=== PATIENT | male | born 2000 | race Caucasian/White ===

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

== ENCOUNTER → 2021-11-27 | Outpatient (CLI) | payer MEDICARE, OTHER ==
--- NOTE | 2021-11-27 10:52 | XR ---
EXAMINATION TYPE: XR ankle limited RT DATE OF EXAM: 11/27/2021 COMPARISON: NONE HISTORY: 21-year-old male M25.5771, right ankle pain. TECHNIQUE: Only 2 views are provided FINDINGS: On the lateral view, there is a slight cortical step-off along the posterior margin either of the dis amanda fibular shaft or distal tibial metadiaphysis. There is mild soft tissue swelling. There is impact ed articular surface of the mid and medial talar dome. Subtalar joint align. IMPRESSION: 1. Only 2 views are provided. There is impacted articular surface of the mid and medial talar dome padilla ggesting old impaction fracture or a significant chronic osteochondral injury. 2. Cortical step off posteriorly on the lateral view could represent sequela of healed fracture eithe r from the distal tibia (posterior malleolus) or fibula.
== END | disposition home or self-care (01) ==
LOC: RADXRMAIN 08:53
PROVIDERS: ATTEND Internal Medicine
DX: M25.571 Pain in right ankle and joints of right foot (principal)

== ENCOUNTER 2021-12-28 10:53 | Emergency (ER) | payer MEDICARE, OTHER ==
[2021-12-28 10:58] VITALS: BP 130/84; PULSE 114; RESP 18; TEMP 97.9
[2021-12-28] MEDS ORDERED: KETOROLAC 15 MG/ML 1 ML VIAL IM STA (11:18)
--- NOTE | 2021-12-28 11:23 | ED ---
General Adult HPI - General Chief complaint: Extremity Injury, Upper Stated complaint: Rt Arm Pain Time Seen by Provider: 12/28/21 11:00 Source: patient Mode of arrival: ambulatory Limitations: no limitations - History of Present Illness Initial comments: This 21-year-old male with past medical history spina bifida presents emergency Department with right elbow and forearm pain. Patient states when he woke up this morning he was experiencing severe elbow pain that has since started to slowly get better. Patient denies sleeping on it, trauma, falling and hitting his right arm. Patient describes the pain as an aching pain. Patient states when he woke up this morning was much worse than it is now, however he still is noticing some pain now. Patient denies taking any medication for this pain. Patient denies any loss of sensation, tingling, neck pain, fever. Patient denies any chest pain, shortness of breath, abdominal pain, nausea, vomiting, change in vision, headache, loss of range of motion of right arm, back pain, change in bowel or bladder. - Related Data Home Medications Medication Instructions Recorded Confirmed Oxybutynin Chloride [Ditropan Oral 5 mg PO TID 12/28/21 12/28/21 Soln] Allergies Allergy/AdvReac Type Severity Reaction Status Date / Time amoxicillin trihydrate Allergy Unknown Verified 12/28/21 11:14 [From Augmentin] latex Allergy Unknown Verified 12/28/21 11:14 morphine Allergy Rash/Hives Verified 12/28/21 11:14 potassium clavulanate Allergy Unknown Verified 12/28/21 11:14 [From Augmentin] Review of Systems ROS Statement: Those systems with pertinent positive or pertinent negative responses have been documented in the HPI. ROS Other: All systems not noted in ROS Statement are negative. Past Medical History Additional Past Medical History / Comment(s): spina bifida, vp & general counsel shunt with revisions x3. no feeling from kness down on both legs. History of Any Multi-Drug Resistant Organisms: None Reported Past Surgical History: Adenoidectomy, Orthopedic Surgery, Tonsillectomy Additional Past Surgical History / Comment(s): back correction for spina bifida, vp & general counsel shunt with 3 revisions, tension release at ankles Past Psychological History: No Psychological Hx Reported Smoking Status: Never smoker Past Alcohol Use History: None Reported Past Drug Use History: None Reported General Exam Limitations: no limitations General appearance: alert, in no apparent distress Head exam: Present: atraumatic, normocephalic Eye exam: Present: normal appearance, PERRL, EOMI Pupils: Present: normal accommodation ENT exam: Present: mucous membranes moist Neck exam: Present: normal inspection, full ROM. Absent: tenderness, meningismus, lymphadenopathy Respiratory exam: Present: normal lung sounds bilaterally. Absent: respiratory distress, wheezes, rales, rhonchi, stridor Cardiovascular Exam: Present: regular rate, normal rhythm, normal heart sounds. Absent: systolic murmur, diastolic murmur, rubs, gallop, clicks GI/Abdominal exam: Present: soft, normal bowel sounds. Absent: distended, tenderness, guarding, rebound, rigid Extremities exam: Present: normal inspection, full ROM, tenderness (Right elbow and dorsal side of forearm painful to palpation. Radial and ulnar pulses intact, full sensation in all digits. Full range of motion. Sensation equal in right and left arms. No swelling, warmth, erythema to right arm), normal capillary refill. Absent: pedal edema, joint swelling, calf tenderness Back exam: Absent: tenderness, CVA tenderness (R), CVA tenderness (L), paraspinal tenderness, vertebral tenderness Neurological exam: Present: alert, oriented X3, CN II-XII intact Psychiatric exam: Present: normal affect, normal mood Skin exam: Present: warm, dry, intact, normal color. Absent: rash Course Vital Signs 12/28/21 10:54 Temperature 97.9 F Pulse Rate 114 H Respiratory 18 Rate Blood Pressure 130/84 O2 Sat by Pulse 98 Oximetry Medical Decision Making - Medical Decision Making This 21-year-old male presents emergency Department with right elbow and dorsal forearm pain that began this morning. Patient states his pain has significantly decreased from this morning. Toradol given. Right arm elbow x-ray impression: Radius aligns normally with the humerus. Anterior fat pad is normal. No elevation of posterior fat pads is evident. No acute osseous abnormality is evident. After Toradol was given, patient states he does have significant decrease of pain of his right elbow and forearm and his pain is 0/10. Patient given option for right upper extremity ultrasound to assess for blood clot, low clinical suspicion for this due to having no swelling, erythema, warmth and currently no pain of right upper extremity at this time. Patient states he'll return if his pain comes back or worsens or he experiences any blood clot signs or symptoms. Patient sent home to follow-up with his primary care provider next 24-48 hours. Strict return precautions were discussed. Patient verbally agreed to plan. Patient sent home in stable condition. Discussed with my attending, Dr. Adams Disposition Clinical Impression: Right elbow pain Disposition: HOME SELF-CARE Condition: Stable Instructions (If sedation given, give patient instructions): Elbow Sprain (ED) Additional Instructions: Follow-up with primary care provider next 24-48 hours. Return to the emergency department with any new, concerning, or worsening symptoms. Is patient prescribed a controlled substance at d/c from ED?: No Referrals: Rubén Otoole DO [Primary Care Provider] - 1-2 days Decision Time: 12:06
--- NOTE | 2021-12-28 11:44 | XR ---
EXAMINATION TYPE: XR elbow complete RT DATE OF EXAM: 12/28/2021 COMPARISON: None HISTORY: Pain TECHNIQUE: Three-view right elbow FINDINGS: Radius aligns normally with the humerus. Anterior fat pad is normal. No elevation of food safety coordinator ior fat pad is evident. No acute osseous abnormality is evident. Follow-up can be performed as clinically indicated. IMPRESSION: 1. No acute osseous abnormality right elbow.
== END 2021-12-28 12:40 | disposition home or self-care (01) ==
LOC: EC 10:53
DX: M25.521 Pain in right elbow (principal); Z88.0 Allergy status to penicillin; Z91.040 Latex allergy status; Z88.6 Allergy status to analgesic agent
CPT/HCPCS: 73080; 96372; 99283; J1885

== ENCOUNTER → 2022-01-26 | Outpatient (CLI) | payer MEDICARE, OTHER ==
--- NOTE | 2022-01-26 10:19 | US ---
EXAMINATION TYPE: US kidneys/renal and bladder DATE OF EXAM: 01/26/2022 COMPARISON: US CLINICAL HISTORY: N31.9 Neurogenic bladder. Neurogenic bladder due to spina bifida, pt self caths EXAM MEASUREMENTS: Right Kidney: 12.2 x 6.2 x 6.5 cm Left Kidney: 11.7 x 5.3 x 4.9 cm Right Kidney: Moderate hydro Left Kidney: Mildly dilated renal pelvis= 2.1 cm Bladder: Irregular bladder wall, possible air within anterior bladder wall, bladder wall thickness= 0 .8 cm Bilateral Jets seen: No No nephrolithiasis is seen. No masses are identified. The urinary bladder is anechoic. Bilateral u reteral jets are seen. IMPRESSION: Right greater than left hydronephrosis. Irregular bladder wall thickening.
== END | disposition home or self-care (01) ==
LOC: RADUSWWP 09:36
PROVIDERS: ATTEND Urology
DX: N31.9 Neuromuscular dysfunction of bladder, unspecified (principal); N13.30 Unspecified hydronephrosis
CPT/HCPCS: 76770

== ENCOUNTER → 2022-02-12 | Outpatient (CLI) | payer MEDICARE, OTHER ==
--- NOTE | 2022-02-12 09:39 | CT ---
EXAMINATION TYPE: CT abdomen pelvis wo con DATE OF EXAM: 02/12/2022 COMPARISON: Ultrasound dated 01/26/2022 HISTORY: Right sided flank pain CT DLP: 552.7 mGycm Automated exposure control for dose reduction was used. TECHNIQUE: Helical acquisition of images was performed from the lung bases through the pelvis. FINDINGS: LUNG BASES: No significant abnormality is appreciated. LIVER/GB: No significant abnormality is appreciated. PANCREAS: No significant abnormality is seen. SPLEEN: No significant abnormality is seen. ADRENALS: No significant abnormality is seen. KIDNEYS: Dilated right renal collecting system as well as the right ureter with mild right perinephri c and right periureteric fat stranding. The dilatation is seen down to the right ureterovesicular harrison ction. No definite radiodense calculus is seen at that location. Irregular outline of the urinary isabella dder with thickened wall, trabeculation and tiny calcification at an anterior wall small diverticulum . No other radiodense urinary bladder calculi. No left-sided hydroureter or hydronephrosis. No defini te renal lesion by this nonenhanced CT scan. FREE AIR: No free air is visualized RETROPERITONEAL ADENOPATHY: None visualized REPRODUCTIVE ORGANS: Apparently small elongated prostate. Unremarkable seminal vesicles. PELVIC ADENOPATHY: 12 mm left external iliac lymph node with prominent subcentimeter bilateral ingui nal and bilateral external iliac lymph nodes, nonspecific. OSSEOUS STRUCTURES: Slight deformity of the sacrum and hip joints bilaterally with degenerative carr ges and possible disuse atrophy. Spina bifida of the sacrum. BOWEL: Unremarkable stomach, duodenum and small bowel. Significant fecal loading of the rectum with large fecaloma within, with milder yet still significant fecal loading of the remainder of the colon suggestive of constipation. The patient may benefit from laxatives or an enema. Normal appendix. OTHER: No sizable ascites. 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 Small fat-containing umbilical herni a. Complete atrophy and fatty infiltration of the gluteal muscles and to a lesser extent some pelvic muscles. IMPRESSION: IRREGULAR OUTLINE OF THE URINARY BLADDER WITH THICKENED WALL, TRABECULATION AND QUESTIONABLE TINY FREIDA CIFICATION/CALCULUS AT THE ANTERIOR ASPECT DESCRIBED ABOVE, UNDERLYING CHRONIC CYSTITIS CAN'T BE E XCLUDED. RECOMMEND CORRELATION WITH URINALYSIS RESULTS AND CYTOLOGY. FURTHER CYSTOSCOPY CAN BE CONSID ERED IF CLINICALLY REQUIRED. MODERATE RIGHT-SIDED HYDROURETER AND HYDRONEPHROSIS DOWN TO THE URETEROVESICULAR JUNCTION WITHOUT DEF INITE RADIODENSE OBSTRUCTING STONE. THIS COULD BE DUE TO THE DESCRIBED URINARY BLADDER CHANGES HOWEVE R RIGHT URETEROVESICAL JUNCTION STRICTURE OR RADIOLUCENT STONE CANNOT BE EXCLUDED. FURTHER RENAL SCIN TIGRAPHY CAN BE CONSIDERED. OTHER FINDINGS DESCRIBED ABOVE.
== END | disposition home or self-care (01) ==
LOC: RADCTMAIN 08:52
PROVIDERS: ATTEND Urology
DX: N13.30 Unspecified hydronephrosis (principal)
CPT/HCPCS: 74176

== ENCOUNTER → 2023-02-25 | Outpatient (CLI) | payer MEDICARE, OTHER ==
--- NOTE | 2023-02-25 14:23 | US ---
EXAMINATION TYPE: US kidneys/renal and bladder DATE OF EXAM: 02/25/2023 COMPARISON: CT, US 2021 CLINICAL HISTORY: N13.30. Hydronephrosis. Pt has spina bifida. EXAM MEASUREMENTS: Right Kidney: 12.0 x 6.8 x 7.7 cm Left Kidney: 11.2 x 5.2 x 5.8 cm Right Kidney: Moderate to large Hydronephrosis seen Left Kidney: Appearance of probable prominent column of Chuy. Bladder: Bladder wall appears thickened: 0.5 cm. Wall also appears irregular/jagged. Bilateral Jets seen: No Urinary bladder wall appears thickened. IMPRESSION: 1. Moderate to large right hydronephrosis. 2. Thickened urinary bladder wall.
== END | disposition home or self-care (01) ==
LOC: RADUSWWP 12:59
PROVIDERS: ATTEND Urology
DX: N13.30 Unspecified hydronephrosis (principal); N32.89 Other specified disorders of bladder
CPT/HCPCS: 76770

== ENCOUNTER → 2023-03-24 | Outpatient (CLI) | payer OTHER, MEDICARE ==
[~2023-03-24] MED LIST: FUROSEMIDE 10 MG/ML 2 ML VIAL IV ONE
--- NOTE | 2023-03-24 15:28 | NM ---
INDICATION: Patient age:Male; 22 years old; Reason for study: N13.30 UNSPECIFIED HYDRONEPHROSIS; PHH. COMPARISON: Ultrasound 02/25/2023, 01/26/2022, CT abdomen and pelvis 02/12/2022. TECHNIQUE: 8.7 mCi of technetium 99m labeled MAG3 was administered intravenously. Dynamic posterior perfusion images over the abdomen were obtained. This was followed by posterior functional images ob tained at 2min/frame for 21 frames. 10 mg of intravenous Lasix was administered 10 minutes following radiotracer injection. Quantitative analysis was performed. FINDINGS: Dynamic perfusion images demonstrate prompt accumulation of radiotracer within the left kidney with m inimal delay on the right. Moderate left hydronephrosis associated. The left kidney demonstrates normal washout with appropriate excretion curve. The right kidney demons trates obstructive excretion curve. Split renal function for the kidneys (uptake %): 36.8 right and 63.2 left which is within normal limits. (Normal is within 10% of each other) Renal retention: 0.619 on the left which is abnormal Time of one half Lasix: 25.9 minutes on the left which is abnormal. IMPRESSION: 1. Moderate left hydronephrosis with findings most consistent with an obstruction. Right kidney demon strates normal findings. 2. Quantitative analysis as above.
== END | disposition home or self-care (01) ==
LOC: RADNMMAIN 12:45
PROVIDERS: ATTEND Urology
DX: N13.30 Unspecified hydronephrosis (principal)
CPT/HCPCS: 78708; A9562; 11042

== ENCOUNTER → 2023-06-02 | Outpatient (CLI) | payer OTHER, MEDICARE ==
--- NOTE | 2023-06-02 22:48 | US ---
EXAMINATION TYPE: US kidneys/renal and bladder DATE OF EXAM: 06/02/2023 COMPARISON: NONE CLINICAL INDICATION: Male, 23 years old with history of N13.30; Hydronephrosis EXAM MEASUREMENTS: Right Kidney: 9.7 x 6.2 x 5.8 cm Left Kidney: 11.0 x 4.6 x 4.0 cm Right Kidney: Severe hydronephrosis Left Kidney: No hydronephrosis or masses seen Bladder: Thickened wall. Bilateral Jets seen: no, left only. IMPRESSION: 1. Severe right hydronephrosis. 2. Urinary bladder wall thickening. Additional workup is recommended
== END | disposition home or self-care (01) ==
LOC: RADUSWWP 14:53 → EEVIPCON 15:00
PROVIDERS: ATTEND Urology
DX: N13.30 Unspecified hydronephrosis (principal); N32.89 Other specified disorders of bladder
CPT/HCPCS: 76770

== ENCOUNTER → 2023-06-28 | Outpatient (CLI) | payer OTHER, MEDICARE ==
[~2023-06-28] MED LIST changes: -FUROSEMIDE 10 MG/ML 2 ML VIAL IV ONE; +FUROSEMIDE 10 MG/ML 2 ML VIAL IV STA
--- NOTE | 2023-06-28 16:44 | NM ---
EXAMINATION TYPE: NM lasix renogram DATE OF EXAM: 06/28/2023 COMPARISON: 03/24/2023, ultrasound 06/02/2023 CLINICAL INDICATION: Male, 23 years old with history of N13.30 UNSPECIFIED HYDRONEPHROSIS; Following administration of 10.18 mCi Tc 99m MAG3 with 20mg Lasix. Immediate images post injection FINDINGS: Left: 63.9 %. Right: 36.1 %. Max renal flow left: 11.52 minutes. Max renal flow right: 29.5 minutes. Satisfactory accumulation of radiotracer within both renal collecting systems. After the administrati on of Lasix, there is prompt excretion from both collecting systems. T 1/2 left: 20 minutes. T 1/2 right: NA minutes. IMPRESSION: No significant change from prior on 03/24/2023 with evidence of right kidney obstruction. Left renal c ollecting system is within normal limits.
== END | disposition home or self-care (01) ==
LOC: RADNMMAIN 13:02
PROVIDERS: ATTEND Urology
DX: N13.30 Unspecified hydronephrosis (principal)
CPT/HCPCS: 78708; A9562

== ENCOUNTER 2024-04-05 02:51 | Emergency (ER) | payer MEDICARE, OTHER ==
--- NOTE | 2024-04-05 03:39 | ED ---
General Adult HPI - General Source: patient, family Mode of arrival: wheelchair Limitations: physical limitation <Johnathan Patel - Last Filed: 04/05/24 04:16> <Mayito Geronimo - Last Filed: 04/05/24 06:38> - General Chief complaint: Urogenital Stated complaint: Right Side Pain Time Seen by Provider: 04/05/24 03:06 - History of Present Illness Initial comments: 23-year-old male with a past medical history significant for spina bifida with known "swelling of the right kidney" as described by the patient's mother follows with nephrology at [facility] and had a suprapubic catheter placed a few days ago and also notes a Bateman catheter in place which is currently capped due to a reported injury to the urethra that they are living he will prior to use of this Bateman catheter presenting to the ED with onset of right flank pain today with decreased urination. No fever or chills. Does note minimal blood in the urine. No other complaints at this time. (Johnathan Patel) - Related Data Home Medications Medication Instructions Recorded Confirmed Oxybutynin Chloride [Ditropan Oral 5 mg PO TID 12/28/21 12/28/21 Soln] Previous Rx's Medication Instructions Recorded Ciprofloxacin HCl [Cipro] 500 mg PO Q12HR 7 Days #14 tab 04/05/24 Allergies Allergy/AdvReac Type Severity Reaction Status Date / Time amoxicillin trihydrate Allergy Unknown Verified 04/05/24 02:57 [From Augmentin] latex Allergy Unknown Verified 04/05/24 02:57 morphine Allergy Rash/Hives Verified 04/05/24 02:57 potassium clavulanate Allergy Unknown Verified 04/05/24 02:57 [From Augmentin] Review of Systems ROS Other: All systems not noted in ROS Statement are negative. <Johnathan Patel - Last Filed: 04/05/24 04:16> ROS Other: All systems not noted in ROS Statement are negative. <Mayito Geronimo - Last Filed: 04/05/24 06:38> ROS Statement: Those systems with pertinent positive or pertinent negative responses have been documented in the HPI. Past Medical History Additional Past Medical History / Comment(s): spina bifida, [employer] shunt with revisions x3. no feeling from kness down on both legs. wheelchair bound History of Any Multi-Drug Resistant Organisms: None Reported Past Surgical History: Adenoidectomy, Orthopedic Surgery, Tonsillectomy Additional Past Surgical History / Comment(s): back correction for spina bifida, [employer] shunt with 3 revisions, tension release at ankles, suprapublic catheter, bilateral eyes Past Psychological History: No Psychological Hx Reported Smoking Status: Never smoker Past Alcohol Use History: None Reported Past Drug Use History: None Reported <Johnahtan Patel - Last Filed: 04/05/24 04:16> General Exam Limitations: physical limitation General appearance: alert, in no apparent distress Eye exam: Present: normal appearance Neck exam: Present: normal inspection Respiratory exam: Present: normal lung sounds bilaterally Cardiovascular Exam: Present: regular rate GI/Abdominal exam: Present: soft, other. Absent: distended, tenderness, guarding, rebound, rigid <Johnathan Patel - Last Filed: 04/05/24 04:16> Course Vital Signs 04/05/24 04/05/24 02:58 06:02 Temperature 98.7 F Pulse Rate 107 H 89 Respiratory 18 18 Rate Blood Pressure 145/94 130/88 O2 Sat by Pulse 96 98 Oximetry Medical Decision Making - Lab Data Result diagrams: 04/05/24 03:36 <Johnathan Patel - Last Filed: 04/05/24 04:16> - Lab Data Result diagrams: 04/05/24 03:36 04/05/24 03:36 <Mayito Geronimo - Last Filed: 04/05/24 06:38> - Medical Decision Making Was pt. sent in by a medical professional or institution (Dr. PA, CASTING ROOM OPERATOR, urgent care, hospital, or longterm...) When possible be specific @ -No Did you speak to anyone other than the patient for history (EMS, parent, family, police, friend...)? What history was obtained from this source @ -Parts of history obtained by both the patient and his mother. For further details procedure. Did you review nursing and triage notes (agree or disagree)? Why? @ -I reviewed and agree with nursing and triage notes Were old charts reviewed (outside hosp., previous admission, EMS record, old EKG, old radiological studies, urgent care reports/EKG's, longterm records)? Report findings @ -No old charts were reviewed Differential Diagnosis (chest pain, altered mental status, abdominal pain women, abdominal pain men, vaginal bleeding, weakness, fever, dyspnea, syncope, headache, dizziness, GI bleed, back pain, seizure, CVA, palpatations, mental health, musculoskeletal)? @ -Differential Abdominal Pain Men: Appendicitis, cholecystitis, diverticulosis, ischemic bowel, pancreatitis, hepatitis, UTI, gastroenteritis, AAA, incarcerated hernia, bowel obstruction, constipation, inflammatory bowel, hepatitis, peptic ulcer disease, splenic in farction, perforated viscus, testicular torsion, this is not meant to be an all- inclusive list EKG interpreted by me (3pts min.). @ -None X-rays interpreted by me (1pt min.). @ -None done CT interpreted by me (1pt min.). @ -Pending U/S interpreted by me (1pt. min.). @ -None done What testing was considered but not performed or refused? (CT, X-rays, U/S, labs)? Why? @ -None What meds were considered but not given or refused? Why? @ -None Did you discuss the management of the patient with other professionals (professionals i.e. , PA, CASTING ROOM OPERATOR, lab, RT, psych nurse, social media analyst, centrifugal casting machine tender, teacher, postal sorting officer, case folder)? Give summary @ -No Was smoking cessation discussed for >3mins.? @ -No Was critical care preformed (if so, how long)? @ -No Were there social determinants of health that impacted care today? How? (Homelessness, low income, unemployed, alcoholism, drug addiction, transportation, low edu. Level, literacy, decrease access to med. care, fci, rehab)? @ -No Was there de-escalation of care discussed even if they declined (Discuss DNR or withdrawal of care, Hospice)? DNR status @ -No What co-morbidities impacted this encounter? (DM, HTN, Smoking, COPD, CAD, Cancer, CVA, ARF, Chemo, Hep., AIDS, mental health diagnosis, sleep apnea, morbid obesity)? @ -None Was patient admitted / discharged? Hospital course, mention meds given and route, prescriptions, significant lab abnormalities, going to OR and other pertinent info. @ -Pending 23-year-old male with a past medical history significant for spina bifida and recent suprapubic catheter placed by [facility] a few days ago presented to the ED with acute onset of right flank pain tonight. At this time laboratory and imaging studies are pending and case signed out to my attending physician, Dr. Geronimo, for further disposition. (Johnathan Patel) Signed out to me pending results of CT imaging and labs. Briefly, patient has a history of spina bifida with a shunt. Had a chronic Bateman but now has a suprapubic catheter. Has a history of recurrent UTIs. Just had suprapubic catheter placed 4 days ago. Presents with suprapubic and right-sided abdominal pain which is typical when he has UTI. Has chronic hydroureter on the right. Family presents for further evaluation. Is due to see his urologist next week. Not currently on any antibiotics. CT imaging as interpreted by myself reveals chronic right hydroureter and hydronephrosis which is unchanged from prior CTs. Patient has inflammation of the bladder as well as the proximal right ureter suggestive of infection. Could be inflammatory related secondary to recent suprapubic catheter placement as well. Patient's labs are remarkable for slight leukocytosis of 11.8. Normal kidney function. Urinalysis shows large leukocyte esterase, RBCs, WBCs. Uric acid within normal limits. I updated the patient as well as family. Patient is well-appearing at this time. We will initiate antibiotic therapy on the patient. I did discuss removal of his catheters however patient still has a plugged fairly secondary to a possible hole in his urethra as well as a recently placed suprapubic catheter. Due to these 2 issues, I did offer to remove them but recommended close follow- up with his urologist for guidance regarding this. They were in agreement this plan will call upon leaving the emergency department today. Patient is well- appearing otherwise at this time. They can continue use of Tylenol at home for analgesia and patient will be given a dose of IV Rocephin as well as started on ciprofloxacin for UTI. They were in agreement this plan. Patient be discharged home at this time. Strict return precautions discussed. I will provide the patient with a prescription for ciprofloxacin. I instructed the patient to follow up with their PCP in the next 1-3 days.. I explained that the patient should return to the emergency department if they experience any worsening symptoms. Strict return precautions were discussed with the patient. The patient expressed understanding of these instructions. I answered all questions that the patient had. The patient was discharged home in fair condition with their prescriptions and follow up information. Diagnosis/symptom? @ -UTI Acute, or Chronic, or Acute on Chronic? @ -Acute Uncomplicated (without systemic symptoms) or Complicated (systemic symptoms)? @ -Complicated Side effects of treatment? @ -None Exacerbation, Progression, or Severe Exacerbation] @ -No Poses a threat to life or bodily function? @ -Possibly, yes (Mayito Geronimo) - Lab Data Lab Results 04/05/24 04/05/24 04/05/24 Range/Units 03:36 03:36 03:36 WBC 11.8 H (3.8-10.6) k/uL RBC 5.72 (4.30-5.90) m/uL Hgb 16.1 (13.0-17.5) gm/dL Hct 50.4 (39.0-53.0) % MCV 88.1 (80.0-100.0) fL MCH 28.1 (25.0-35.0) pg MCHC 31.9 (31.0-37.0) g/dL RDW 13.5 (11.5-15.5) % Plt Count 211 (150-450) k/uL MPV 9.0 Neutrophils % 77 % Lymphocytes % 16 % Monocytes % 4 % Eosinophils % 2 % Basophils % 0 % Neutrophils # 9.2 H (1.3-7.7) k/uL Lymphocytes # 1.9 (1.0-4.8) k/uL Monocytes # 0.4 (0-1.0) k/uL Eosinophils # 0.2 (0-0.7) k/uL Basophils # 0.1 (0-0.2) k/uL Sodium 143 (137-145) mmol/L Potassium 4.3 (3.5-5.1) mmol/L Chloride 111 H (98-107) mmol/L Carbon Dioxide 20 L (22-30) mmol/L Anion Gap 12 mmol/L BUN 18 (9-20) mg/dL Creatinine 0.84 (0.66-1.25) mg/dL Est GFR (CKD-EPI)AfAm >90 (>60 ml/min/1.73 sqM) Est GFR (CKD-EPI)NonAf >90 (>60 ml/min/1.73 sqM) Glucose 148 H (74-99) mg/dL Plasma Lactic Acid Jaya (0.7-2.0) mmol/L Calcium 9.5 (8.4-10.2) mg/dL Total Bilirubin 0.6 (0.2-1.3) mg/dL AST 28 (17-59) U/L ALT 47 (4-49) U/L Alkaline Phosphatase 107 (38-126) U/L Total Protein 7.3 (6.3-8.2) g/dL Albumin 4.3 (3.5-5.0) g/dL Urine Color Yellow Urine Appearance Cloudy (Clear) Urine pH 6.5 (5.0-8.0) Ur Specific [place] 1.028 (1.001-1.035) Urine Protein 3+ H (Negative) Urine Glucose (UA) Negative (Negative) Urine Ketones Negative (Negative) Urine Blood Moderate H (Negative) Urine Nitrite Negative (Negative) Urine Bilirubin Negative (Negative) Urine Urobilinogen <2.0 (<2.0) mg/dL Ur Leukocyte Esterase Large H (Negative) Urine RBC >182 H (0-5) /hpf Urine WBC >182 H (0-5) /hpf Urine Mucus Many H (None) /hpf 04/05/24 Range/Units 03:36 WBC (3.8-10.6) k/uL RBC (4.30-5.90) m/uL Hgb (13.0-17.5) gm/dL Hct (39.0-53.0) % MCV (80.0-100.0) fL MCH (25.0-35.0) pg MCHC (31.0-37.0) g/dL RDW (11.5-15.5) % Plt Count (150-450) k/uL MPV Neutrophils % % Lymphocytes % % Monocytes % % Eosinophils % % Basophils % % Neutrophils # (1.3-7.7) k/uL Lymphocytes # (1.0-4.8) k/uL Monocytes # (0-1.0) k/uL Eosinophils # (0-0.7) k/uL Basophils # (0-0.2) k/uL Sodium (137-145) mmol/L Potassium (3.5-5.1) mmol/L Chloride (98-107) mmol/L Carbon Dioxide (22-30) mmol/L Anion Gap mmol/L BUN (9-20) mg/dL Creatinine (0.66-1.25) mg/dL Est GFR (CKD-EPI)AfAm (>60 ml/min/1.73 sqM) Est GFR (CKD-EPI)NonAf (>60 ml/min/1.73 sqM) Glucose (74-99) mg/dL Plasma Lactic Acid Jaya 1.6 (0.7-2.0) mmol/L Calcium (8.4-10.2) mg/dL Total Bilirubin (0.2-1.3) mg/dL AST (17-59) U/L ALT (4-49) U/L Alkaline Phosphatase (38-126) U/L Total Protein (6.3-8.2) g/dL Albumin (3.5-5.0) g/dL Urine Color Urine Appearance (Clear) Urine pH (5.0-8.0) Ur Specific [place] (1.001-1.035) Urine Protein (Negative) Urine Glucose (UA) (Negative) Urine Ketones (Negative) Urine Blood (Negative) Urine Nitrite (Negative) Urine Bilirubin (Negative) Urine Urobilinogen (<2.0) mg/dL Ur Leukocyte Esterase (Negative) Urine RBC (0-5) /hpf Urine WBC (0-5) /hpf Urine Mucus (None) /hpf Disposition <Johnathan Patel - Last Filed: 04/05/24 04:16> Is patient prescribed a controlled substance at d/c from ED?: No Time of Disposition: 05:49 <Mayito Geronimo - Last Filed: 04/05/24 06:38> Clinical Impression: UTI (urinary tract infection) Disposition: HOME SELF-CARE Condition: Fair Instructions (If sedation given, give patient instructions): Urinary Tract Infection in Men (ED) Additional Instructions: contact specialist later today at for followup. Prescriptions: Ciprofloxacin HCl [Cipro] 500 mg PO Q12HR 7 Days #14 tab Referrals: Rubén Otoole DO [Primary Care Provider] - 1-2 days
[2024-04-05 03:44] VITALS: RESP 18; TEMP 98.7
[2024-04-05 03:45] LABS: Basophils # (A) 0.1 k/uL (0-0.2); Basophils % (A) 0 %; Eosinophils # (A) 0.2 k/uL (0-0.7); Eosinophils % (A) 2 %; HCT 50.4 % (39.0-53.0); HGB 16.1 gm/dL (13.0-17.5); Lymphocytes # (A) 1.9 k/uL (1.0-4.8); Lymphocytes % (A) 16 %; MCH 28.1 pg (25.0-35.0); MCHC 31.9 g/dL (31.0-37.0); MCV 88.1 fL (80.0-100.0); Monocytes # (A) 0.4 k/uL (0-1.0); Monocytes % (A) 4 %; Neutrophils # (A) 9.2 k/uL (1.3-7.7); Neutrophils % (A) 77 %; Platelet Count 211 k/uL (150-450); RBC 5.72 m/uL (4.30-5.90); RDW 13.5 % (11.5-15.5); WBC 11.8 k/uL (3.8-10.6)
[2024-04-05 03:49] LABS: Appearance,Urine Cloudy (Clear); Bilirubin,Urine Negative (Negative); Blood,Urine Moderate (Negative); Color,Urine Yellow; Glucose,Urine (UA) Negative (Negative); Ketones,Urine Negative (Negative); Leukocyte Esterase,Urine Large (Negative); Mucus,Urine Many /hpf; Nitrite,Urine Negative (Negative); PH, Urine 6.5 (5.0-8.0); Protein,Urine 3+ (Negative); RBC,Urine >182 /hpf (0-5); Specific Gravity,Urine 1.028 (1.001-1.035); Urobilinogen,Urine <2.0 mg/dL (<2.0); WBC,Urine >182 /hpf (0-5)
[2024-04-05] MEDS: KETOROLAC 15 MG/ML 1 ML VIAL IVP STA (04:02)
[2024-04-05] MEDS: HYDROmorphone 0.5 MG/0.5 ML SYRINGE IVP STA (04:03)
[2024-04-05] MEDS: SODIUM CHLORIDE 0.9% 1,000 ML IV STA (04:04)
--- NOTE | 2024-04-05 04:58 | CT ---
EXAM: CT Abdomen and Pelvis Without Intravenous Contrast CLINICAL HISTORY: R flank pain TECHNIQUE: Axial computed tomography images of the abdomen and pelvis without intravenous contrast. CTDI is 15.6 mGy and DLP is 971.1 mGy-cm. This CT exam was performed using one or more of the following dose reduction techniques: automated exposure control, adjustment of the mA and/or kV according to patient size, and/or use of iterative reconstruction technique. COMPARISON: 02/12/2022. FINDINGS: Lung bases: Unremarkable. No mass. No consolidation. ABDOMEN: Liver: Unremarkable. Gallbladder and bile ducts: Unremarkable. No calcified stones. No ductal dilation. Pancreas: Unremarkable. No ductal dilation. Spleen: Top normal sized 13.2 cm length. Adrenals: Unremarkable. No mass. Kidneys and ureters: Unchanged moderately severe right hydronephrosis and diffuse hydroureter to the level of the urinary bladder. Mild infiltration surrounding the right ureter. No obstructing calculus. Left kidney is unremarkable. Stomach and bowel: Small fat-containing periumbilical hernia. No obstruction or ileus. Abundant stool throughout the colon. No evidence for diverticulitis. PELVIS: Appendix: No findings to suggest acute appendicitis. Bladder: Collapsed urinary bladder with diffuse ill-defined wall thickening in the presence of a Bateman catheter as well as a suprapubic urinary catheter. No stones. Reproductive: Unremarkable as visualized. ABDOMEN and PELVIS: Intraperitoneal space: Right-sided [employer] shunt catheter with the distal tip coiled in the lower left abdomen. No associated fluid collection. No free air. No free fluid. Bones/joints: No acute fracture. Unchanged probable lower lumbar spina bifida defect with chronic deformity of the bilateral hips. Soft tissues: Unremarkable. Vasculature: Unremarkable. No abdominal aortic aneurysm. Lymph nodes: Unremarkable. No enlarged lymph nodes. IMPRESSION: Unchanged severe right hydronephrosis and diffuse hydroureter to the level of the urinary bladder without an obstructing calculus. Collapsed urinary bladder the presence of a Bateman catheter and suprapubic catheter. Mild infiltration surrounding the right ureter and thickened ill-defined jeff the urinary bladder, suspicious for a urinary tract infection of the right ureter and urinary bladder. Otherwise no significant change from 02/12/2022.
[2024-04-05 05:12] LABS: ALT 47 U/L (4-49); AST 28 U/L (17-59); African American GFR (CKD) >90 (>60 ml/min/1.73 sqM); Albumin 4.3 g/dL (3.5-5.0); Alkaline Phosphatase 107 U/L (38-126); Anion Gap 12 mmol/L; Blood Urea Nitrogen 18 mg/dL (9-20); Calcium 9.5 mg/dL (8.4-10.2); Carbon Dioxide 20 mmol/L (22-30); Chloride 111 mmol/L (98-107); Glucose 148 mg/dL (74-99); Non-African American GFR(CKD) >90 (>60 ml/min/1.73 sqM); Potassium 4.3 mmol/L (3.5-5.1); Sodium 143 mmol/L (137-145); Total Bilirubin 0.6 mg/dL (0.2-1.3); Total Protein 7.3 g/dL (6.3-8.2)
[2024-04-05] MEDS: CIPROFLOXACIN HCL 500 MG TAB PO STA (05:53)
[2024-04-05] MEDS: cefTRIAXone IN SWFI 1,000 MG/10 ML SYRINGE IVP STA (05:53)
[2024-04-05 07:00] VITALS: BP 130/88; PULSE 89
== END 2024-04-05 06:12 | disposition home or self-care (01) ==
LOC: EEVIPCON 02:51 → EC 02:51
DX: N39.0 Urinary tract infection, site not specified (principal); Z88.0 Allergy status to penicillin; Z88.1 Allergy status to other antibiotic agents; Z91.040 Latex allergy status; Z88.8 Allergy status to other drugs, medicaments and biological substances
CPT/HCPCS: 36415; 80053; 83605; 85025; 81001; 74176; 99284; 96374; 96375 ×2; 96361; J0696; J1885; J1170

== ENCOUNTER 2024-05-25 16:41 | Emergency (ER) | payer OTHER, MEDICARE ==
--- NOTE | 2024-05-25 17:53 | ED ---
General Adult HPI - General Chief complaint: Recheck/Abnormal Lab/Rx Stated complaint: cath flush Time Seen by Provider: 05/25/24 16:58 Source: patient, RN notes reviewed Mode of arrival: wheelchair Limitations: no limitations - History of Present Illness Initial comments: This is a 24-year-old male who presents emergency department accompanied by his mother with chief complaint of suprapubic catheter malfunction. Patient states that yesterday his suprapubic catheter was draining appropriately. Mother states that she attempted to remove some of the debris's from the catheter. She states that the catheter has been draining better today however feels like the output is not as much as it normally is. Had a suprapubic catheter placed in March and follows with urogyn for this. Patient denies fevers, chills, nausea, vomiting, lower back or flank pain. Denies discoloration to urine or history of nephrolithiasis. No other acute complaints at this time. - Related Data Home Medications Medication Instructions Recorded Confirmed Oxybutynin Chloride [Ditropan Oral 5 mg PO TID 12/28/21 12/28/21 Soln] Previous Rx's Medication Instructions Recorded Ciprofloxacin HCl [Cipro] 500 mg PO Q12HR 7 Days #14 tab 04/05/24 Cephalexin [Keflex] 500 mg PO Q6HR #40 cap 05/25/24 Allergies Allergy/AdvReac Type Severity Reaction Status Date / Time amoxicillin trihydrate Allergy Unknown Verified 05/25/24 16:57 [From Augmentin] latex Allergy Unknown Verified 05/25/24 16:57 morphine Allergy Rash/Hives Verified 05/25/24 16:57 potassium clavulanate Allergy Unknown Verified 05/25/24 16:57 [From Augmentin] Review of Systems ROS Statement: Those systems with pertinent positive or pertinent negative responses have been documented in the HPI. ROS Other: All systems not noted in ROS Statement are negative. Past Medical History Additional Past Medical History / Comment(s): spina bifida, evp [place] shunt with revisions x3. no feeling from kness down on both legs. wheelchair bound History of Any Multi-Drug Resistant Organisms: None Reported Past Surgical History: Adenoidectomy, Orthopedic Surgery, Tonsillectomy Additional Past Surgical History / Comment(s): back correction for spina bifida, evp [place] shunt with 3 revisions, tension release at ankles, suprapublic catheter, bilateral eyes Past Psychological History: No Psychological Hx Reported Smoking Status: Never smoker Past Alcohol Use History: None Reported Past Drug Use History: None Reported General Exam Limitations: no limitations, physical limitation General appearance: alert, in no apparent distress Head exam: Present: atraumatic, normocephalic, normal inspection ENT exam: Present: normal exam, mucous membranes moist Neck exam: Present: normal inspection. Absent: tenderness, meningismus, lymphadenopathy Respiratory exam: Present: normal lung sounds bilaterally. Absent: respiratory distress, wheezes, rales, rhonchi, stridor Cardiovascular Exam: Present: regular rate, normal rhythm, normal heart sounds. Absent: systolic murmur, diastolic murmur, rubs, gallop, clicks GI/Abdominal exam: Present: soft, tenderness (suprapubic), normal bowel sounds. Absent: distended, guarding, rebound, rigid Psychiatric exam: Present: normal affect, normal mood Skin exam: Present: warm, dry, intact, normal color. Absent: rash Course Vital Signs 05/25/24 05/25/24 16:57 21:21 Temperature 97.6 F 97.9 F Pulse Rate 94 91 Respiratory 16 18 Rate Blood Pressure 149/94 138/84 O2 Sat by Pulse 97 98 Oximetry Medical Decision Making - Medical Decision Making Was pt. sent in by a medical professional or institution (VIKTORIA Chao, SUMMER LAW CLERK, urgent care, hospital, or care home...) When possible be specific @ -No Did you speak to anyone other than the patient for history (EMS, parent, family, police, friend...)? What history was obtained from this source @ -spoke to the patient's mom at bedside states that the patient had a suprapubic catheter placed in March and follows with [facility] for follow-up. Did you review nursing and triage notes (agree or disagree)? Why? @ -I reviewed and agree with nursing and triage notes Were old charts reviewed (outside hosp., previous admission, EMS record, old EKG, old radiological studies, urgent care reports/EKG's, care home records)? Report findings @ -No old charts were reviewed Differential Diagnosis (chest pain, altered mental status, abdominal pain women, abdominal pain men, vaginal bleeding, weakness, fever, dyspnea, syncope, headache, dizziness, GI bleed, back pain, seizure, CVA, palpatations, mental health, musculoskeletal)? @ -Urinary tract infection, suprapubic catheter malfunction, this list is not all inclusive EKG interpreted by me (3pts min.). @ -none X-rays interpreted by me (1pt min.). @ -None done CT interpreted by me (1pt min.). @ -None done U/S interpreted by me (1pt. min.). @ -None done What testing was considered but not performed or refused? (CT, X-rays, U/S, labs)? Why? @ -None What meds were considered but not given or refused? Why? @ -None Did you discuss the management of the patient with other professionals (professionals i.e. , PA, SUMMER LAW CLERK, lab, RT, psych nurse, socially responsible investment adviser, roving weight gauger, teacher, staff air defense officer, case briefer)? Give summary @ -No Was smoking cessation discussed for >3mins.? @ -No Was critical care preformed (if so, how long)? @ -No Were there social determinants of health that impacted care today? How? (Homelessness, low income, unemployed, alcoholism, drug addiction, transportation, low edu. Level, literacy, decrease access to med. care, assisted, rehab)? @ -No Was there de-escalation of care discussed even if they declined (Discuss DNR or withdrawal of care, Hospice)? DNR status @ -No What co-morbidities impacted this encounter? (DM, HTN, Smoking, COPD, CAD, Cancer, CVA, ARF, Chemo, Hep., AIDS, mental health diagnosis, sleep apnea, morbid obesity)? @ -None Was patient admitted / discharged? Hospital course, mention meds given and route, prescriptions, significant lab abnormalities, going to OR and other pertinent info. @ -Discharged. 24-year-old male with suprapubic catheter malfunction. Patient's examination benign aside from mild suprapubic tenderness to palpation. Vitals are stable upon arrival. Catheter was appropriately flushed and there is good output. Patient;s urinalysis consistent with infections including nitrites, WBCs and WBC clumps. Will be sent prescription for Keflex instructed to complete full course of antibiotics. All questions answered at bedside and strict return parameters discussed with patient has verbalized understanding. Case discussed with Dr. Helmreich. Undiagnosed new problem with uncertain prognosis? @ -No Drug Therapy requiring intensive monitoring for toxicity (Heparin, Nitro, Insulin, Cardizem)? @ -No Were any procedures done? @ -No Diagnosis/symptom? @ -urinary Tract infection, suprapubic catheter malfunction Acute, or Chronic, or Acute on Chronic? @ -Acute Uncomplicated (without systemic symptoms) or Complicated (systemic symptoms)? @ -uncomplicated Side effects of treatment? @ -No Exacerbation, Progression, or Severe Exacerbation? @ -No Poses a threat to life or bodily function? How? (Chest pain, [place], [place], pneumonia, PE, COPD, DKA, ARF, appy, cholecystitis, CVA, Diverticulitis, Homicidal, Suicidal, threat to staff... and all critical care pts) @ -No - Lab Data Lab Results 05/25/24 Range/Units 20:50 Urine Color Colorless Urine Appearance Clear (Clear) Urine pH 7.0 (5.0-8.0) Ur Specific [place] 1.006 (1.001-1.035) Urine Protein Negative (Negative) Urine Glucose (UA) Negative (Negative) Urine Ketones Negative (Negative) Urine Blood Trace H (Negative) Urine Nitrite Positive (Negative) Urine Bilirubin Negative (Negative) Urine Urobilinogen <2.0 (<2.0) mg/dL Ur Leukocyte Esterase Large H (Negative) Urine RBC <1 (0-5) /hpf Urine WBC 33 H (0-5) /hpf Urine WBC Clumps Rare H (None) /hpf Urine Bacteria Many H (None) /hpf Urine Mucus Rare H (None) /hpf Disposition Clinical Impression: Suprapubic catheter dysfunction, Urinary tract infection Disposition: HOME SELF-CARE Condition: Good Instructions (If sedation given, give patient instructions): How to Care for Your Suprapubic Catheter (DC) Additional Instructions: Return to the emergency department if your symptoms worsen or do not improve. Complete full course of antibiotics as prescribed. Prescriptions: Cephalexin [Keflex] 500 mg PO Q6HR #40 cap Is patient prescribed a controlled substance at d/c from ED?: No Referrals: Rubén Otoole DO [Primary Care Provider] - 1-2 days Time of Disposition: 20:57
[2024-05-25 21:10] LABS: Appearance,Urine Clear (Clear); Bacteria,Urine Many /hpf; Bilirubin,Urine Negative (Negative); Blood,Urine Trace (Negative); Color,Urine Colorless; Glucose,Urine (UA) Negative (Negative); Ketones,Urine Negative (Negative); Leukocyte Esterase,Urine Large (Negative); Mucus,Urine Rare /hpf; Nitrite,Urine Positive (Negative); Protein,Urine Negative (Negative); RBC,Urine <1 /hpf (0-5); Specific Gravity,Urine 1.006 (1.001-1.035); Urobilinogen,Urine <2.0 mg/dL (<2.0); WBC,Urine 33 /hpf (0-5)
[2024-05-25 21:22] VITALS: BP 138/84; PULSE 91; RESP 18; TEMP 97.9
== END 2024-05-25 21:22 | disposition home or self-care (01) ==
LOC: EC 16:41
DX: T83.028A Displacement of other urinary catheter, initial encounter (principal); N39.0 Urinary tract infection, site not specified; Z88.0 Allergy status to penicillin; Z91.040 Latex allergy status; Z88.5 Allergy status to narcotic agent; Z88.8 Allergy status to other drugs, medicaments and biological substances
CPT/HCPCS: 81001; 99284

== ENCOUNTER 2024-09-01 21:38 | Emergency (ER) | payer MEDICARE, OTHER ==
--- NOTE | 2024-09-01 21:55 | ED ---
Male Urogenital HPI <Calista Singletary - Last Filed: 09/01/24 21:52> <Brianna Garland - Last Filed: 09/02/24 17:12> - General Stated complaint: Cath Issues Time Seen by Provider: 09/01/24 21:52 - History of Present Illness Initial comments: Quick [id number] male presenting for suprapubic catheter issue. States he has had a suprapubic catheter for 5 months. Today, his home nurse attempted to insert a new catheter however had difficulties inserting a new catheter. He follows with urologist at [facility] who instructed him to come to the ER to replace catheter. (Calista Singletary) 24-year-old male presenting with his mother for suprapubic catheter malfunction. Patient had his suprapubic catheter placed back in March by his urologist Dr. Banda at [facility]. This evening they were unable to get it to flush, home nurse came who remove the catheter and attempted to replace it. She was unable to insert a new catheter. They spoke with his urologist to instructed him to come to the ER. He is having no pain. No vomiting or fevers. (Brianna Garland) - Related Data Home Medications Medication Instructions Recorded Confirmed Oxybutynin Chloride [Ditropan Oral 5 mg PO TID 12/28/21 12/28/21 Soln] Previous Rx's Medication Instructions Recorded Ciprofloxacin HCl [Cipro] 500 mg PO Q12HR 7 Days #14 tab 04/05/24 Cephalexin [Keflex] 500 mg PO Q6HR #40 cap 05/25/24 Allergies Allergy/AdvReac Type Severity Reaction Status Date / Time amoxicillin trihydrate Allergy Unknown Verified 09/01/24 22:05 [From Augmentin] latex Allergy Unknown Verified 09/01/24 22:05 morphine Allergy Rash/Hives Verified 09/01/24 22:05 potassium clavulanate Allergy Unknown Verified 09/01/24 22:05 [From Augmentin] Review of Systems ROS Other: All systems not noted in ROS Statement are negative. <Calista Singletary - Last Filed: 09/01/24 21:52> ROS Other: All systems not noted in ROS Statement are negative. <Brianna Garland - Last Filed: 09/02/24 17:12> ROS Statement: Those systems with pertinent positive or pertinent negative responses have been documented in the HPI. Past Medical History Additional Past Medical History / Comment(s): spina bifida, vp communications shunt with revisions x3. no feeling from kness down on both legs. wheelchair bound History of Any Multi-Drug Resistant Organisms: None Reported Past Surgical History: Adenoidectomy, Orthopedic Surgery, Tonsillectomy Additional Past Surgical History / Comment(s): back correction for spina bifida, vp communications shunt with 3 revisions, tension release at ankles, suprapublic catheter, bilateral eyes Past Psychological History: No Psychological Hx Reported Smoking Status: Never smoker Past Alcohol Use History: None Reported Past Drug Use History: None Reported <Calista Singletary - Last Filed: 09/01/24 21:52> General Exam <Calista Singletary - Last Filed: 09/01/24 21:52> General appearance: alert, in no apparent distress Head exam: Present: atraumatic, normocephalic Eye exam: Present: normal appearance, EOMI Neck exam: Present: normal inspection. Absent: meningismus Respiratory exam: Absent: respiratory distress GI/Abdominal exam: Present: soft. Absent: distended, tenderness, guarding, rebound, rigid Neurological exam: Present: alert, oriented X3 Psychiatric exam: Present: normal affect, normal mood Skin exam: Present: warm, dry <Brianna Garland - Last Filed: 09/02/24 17:12> - General Exam Comments Initial Comments: Visual Physical Exam General: Well-appearing, nontoxic, no acute distress. Head: Normocephalic, atraumatic Eyes: PERRLA, EOMI ENT: Airway patent Chest: Nonlabored breathing Skin: No visual rash, normal skin tone Neuro: Alert and oriented 3 Musculoskeletal: No gross abnormalities (Calista Singletary) Course Vital Signs 09/01/24 09/02/24 22:01 00:14 Temperature 98.8 F Pulse Rate 115 H 89 Respiratory 20 18 Rate Blood Pressure 137/86 140/93 O2 Sat by Pulse 96 99 Oximetry Medical Decision Making <Calista Singletary - Last Filed: 09/01/24 21:52> <Brianna Garland - Last Filed: 09/02/24 17:12> - Medical Decision Making I completed the quick note portion of this chart signed Calista Singletary PA-C (Calista Singletary) Was pt. sent in by a medical professional or institution (, [facility], [employer], urgent care, hospital, or skilled nursing...) When possible be specific @ -No Did you speak to anyone other than the patient for history (EMS, parent, family, police, friend...)? What history was obtained from this source @ -History supplemented by the patient's mother Did you review nursing and triage notes (agree or disagree)? Why? @ -I reviewed and agree with nursing and triage notes Were old charts reviewed (outside hosp., previous admission, EMS record, old EKG, old radiological studies, urgent care reports/EKG's, skilled nursing records)? Report findings @ -No old charts were reviewed Differential Diagnosis (chest pain, altered mental status, abdominal pain women, abdominal pain men, vaginal bleeding, weakness, fever, dyspnea, syncope, headache, dizziness, GI bleed, back pain, seizure, CVA, palpatations, mental health, musculoskeletal)? @ -Differential includes adhesions, stricture, user error, this is not an all- inclusive list EKG interpreted by me (3pts min.). @ -As above X-rays interpreted by me (1pt min.). @ -None done CT interpreted by me (1pt min.). @ -None done U/S interpreted by me (1pt. min.). @ -None done What testing was considered but not performed or refused? (CT, X-rays, U/S, labs)? Why? @ -None What meds were considered but not given or refused? Why? @ -None Did you discuss the management of the patient with other professionals (professionals i.e. [facility], [employer], lab, RT, psych nurse, social work specialist, rental coordinator, teacher, armor officer, correctional counselor/case manager)? Give summary @ -I spoke with Dr. Armstrong who advised placement of a urinary catheter and follow-up with his urologist Was smoking cessation discussed for >3mins.? @ -No Was critical care preformed (if so, how long)? @ -No Were there social determinants of health that impacted care today? How? (Homelessness, low income, unemployed, alcoholism, drug addiction, transportation, low edu. Level, literacy, decrease access to med. care, [facility], rehab)? @ -No Was there de-escalation of care discussed even if they declined (Discuss DNR or withdrawal of care, Hospice)? DNR status @ -No What co-morbidities impacted this encounter? (DM, HTN, Smoking, COPD, CAD, Cancer, CVA, ARF, Chemo, Hep., AIDS, mental health diagnosis, sleep apnea, morbid obesity)? @ -None Was patient admitted / discharged? Hospital course, mention meds given and route, prescriptions, significant lab abnormalities, going to OR and other pertinent info. @ -24-year-old male presenting with his mother after his home nurse could not replace his suprapubic catheter tonight. Dr. Parks and I attempted to replace the suprapubic catheter initially with the 20 Slovenian that they brought from home which would not pass into the bladder. We then attempted using a 16 Slovenian which did pass into the bladder but we were unable to inflate the balloon. I spoke with urologist on-call Dr. Armstrong who advised placement of a urinary catheter. I discussed this with the patient and his mother. Shared decision making is utilized. Patient and his mother would feel more comfortable going to [facility] to have the suprapubic catheter replaced by his urology team, as they are concerned about the site closing. They would not like urinary catheter inserted at this time. They will be discharged and will be driving to [facility] [employer]. Follow-up with urologist. Report back to ER with any new or worsening symptoms. Discussed return parameters and answered all questions. Patient conveyed verbal understanding and agreed to the plan. I discussed this case in detail with my attending Dr. Parks Undiagnosed new problem with uncertain prognosis? @ -No Drug Therapy requiring intensive monitoring for toxicity (Heparin, Nitro, Insulin, Cardizem)? @ -No Were any procedures done? @ -Attempted reinsertion of suprapubic catheter Diagnosis/symptom? @ -Suprapubic catheter malfunction Acute, or Chronic, or Acute on Chronic? @ -Acute Uncomplicated (without systemic symptoms) or Complicated (systemic symptoms)? @ -Uncomplicated Side effects of treatment? @ -No Exacerbation, Progression, or Severe Exacerbation? @ -No Poses a threat to life or bodily function? How? (Chest pain, [place], [place], pneumonia, PE, COPD, DKA, ARF, appy, cholecystitis, CVA, Diverticulitis, Homicidal, Suicidal, threat to staff... and all critical care pts) @ -Concern for possible closure of the site if not replaced (Brianna Garland) Disposition <Calista Singletary - Last Filed: 09/01/24 21:52> Is patient prescribed a controlled substance at d/c from ED?: No Time of Disposition: 00:05 <Brianna Garland - Last Filed: 09/02/24 17:12> Clinical Impression: Suprapubic catheter dysfunction Disposition: HOME SELF-CARE Condition: Fair Additional Instructions: Follow-up with your urologist immediately. Report back to ER with any new or worsening symptoms. Referrals: Rubén Otoole DO [Primary Care Provider] - 1-2 days
[2024-09-01 22:05] VITALS: TEMP 98.8
[2024-09-02 00:22] VITALS: BP 140/93; PULSE 89; RESP 18
== END 2024-09-02 00:14 | disposition home or self-care (01) ==
LOC: EC 21:38
CPT/HCPCS: 99283